=== PATIENT | female | born 1985 | race Caucasian/White ===

== ENCOUNTER → 2019-07-21 12:33 | Outpatient (CLI) | payer OTHER, SELFPAY ==
[2019-07-21 14:13] LABS: Platelet Count 198 K/mm3 (150-450); RET-HE 22.4 pg (30-35); Reticulocyte Count 2.67 % (0.5-1.5)
[2019-07-21 14:14] LABS: Color, Urine Yellow (Yellow); Glucose, Dipstick Normal (Normal); Ketone-Dipstick Negative (Negative); Leukocyte Esterase-Dipstick Negative /ul (Negative); Nitrite-Dipstick Negative (Negative); Occult Blood-Urine Negative /ul (Negative); Protein-Dipstick 15 mg/dl (Negative); Urine Bilirubin Dipstick Negative (Negative); Urine Clarity Clear (Clear); Urine Urobilinogen Normal (Normal)
[2019-07-21 14:25] LABS: Protein, Urine (Random) 30.8 mg/dL (<11.9); Protein:Creat Ratio 691 mg/g CRE (0-200)
[2019-07-21 14:53] LABS: LDH 226 U/L (84-246)
== END ==
PROVIDERS: Family Provider Family Medicine; PCP Family Medicine; Referring Provider Internal Medicine Rheumatology; Visit Provider Internal Medicine Rheumatology
DX: M32.9 Systemic lupus erythematosus, unspecified (principal); Z79.899 Other long term (current) drug therapy; M79.7 Fibromyalgia; K50.90 Crohn's disease, unspecified, without complications; G43.909 Migraine, unspecified, not intractable, without status migrainosus
CPT/HCPCS: 36415; 81002; 82570; 83615; 84156; 85045

== ENCOUNTER → 2023-01-06 | Outpatient (CLI) | payer OTHER, SELFPAY ==
[2023-01-06 12:01] LABS: EXAGEN MAILED SPECIMEN
== END | disposition home or self-care (01) ==
PROVIDERS: PCP Nurse Practitioner Family; Visit Provider Internal Medicine Rheumatology
DX: M07.60 Enteropathic arthropathies, unspecified site (principal); M32.9 Systemic lupus erythematosus, unspecified